=== PATIENT | male | born 1940 | race Caucasian/White ===

== ENCOUNTER → 2017-11-10 | Outpatient (CLI) | payer MEDICARE ==
[2017-11-10 15:25] LABS: ABSOLUTE EOSINOPHILS # (AUTO) 0.2 10^3/uL (0.0-0.6); ABSOLUTE LYMPHOCYTES (AUTO) 1.3 10^3/uL (0.5-4.7); ABSOLUTE MONOCYTES (AUTO) 0.6 10^3/uL (0.1-1.4); ABSOLUTE NEUT (AUTO) 5.2 10^3/uL (1.7-8.2); BASOPHILS % (AUTO) 0.3 % (0-2); EOSINOPHILS % (AUTO) 2.1 % (0-6); HEMOGLOBIN 14.1 g/dL (13.5-17.0); LYMPHOCYTES % (AUTO) 18.4 % (13-45); MEAN CORPUSCULAR HEMOGLOBIN 33.8 pg (27.0-33.4); MEAN CORPUSCULAR HGB CONC 35.2 g/dL (32.0-36.0); MEAN CORPUSCULAR VOLUME 96 fl (80-97); MONOCYTES % (AUTO) 8.6 % (3-13); PLATELET COUNT 163 10^3/uL (150-450); RED BLOOD COUNT 4.16 10^6/uL (4.35-5.55); RED CELL DISTRIBUTION WIDTH 13.3 % (11.5-14.0); SEGMENTED NEUTROPHILS % (AUTO) 70.6 % (42-78); TOTAL CELLS COUNTED % (AUTO) 100 %; WHITE BLOOD COUNT 7.3 10^3/uL (4.0-10.5)
[2017-11-10 15:49] LABS: C-REACTIVE PROTEIN < 5.0 mg/L (<10.0)
[2017-11-10 16:03] LABS: ERYTHROCYTE SEDIMENTATION RATE 10 mm/hr (0-20)
[2017-11-12 16:45] LABS: CYCLIC CITRUL PEPTIDE IGG/A AB 5 units (0-19)
== END ==
LOC: OD 14:19
PROVIDERS: ATTEND Orthopaedic Surgery
DX: M51.36 Other intervertebral disc degeneration, lumbar region (principal); M25.50 Pain in unspecified joint
CPT/HCPCS: 36415; 84550; 85025; 85652; 86038; 86140; 86200; 86430

== ENCOUNTER 2019-05-08 08:19 | Day surgery (SDC) | payer MEDICARE ==
[2019-04-18 11:42] LABS: HEMATOCRIT 44.7 % (37.9-51.0); HEMOGLOBIN 15.3 g/dL (13.5-17.0); MEAN CORPUSCULAR HEMOGLOBIN 33.1 pg (27.0-33.4); MEAN CORPUSCULAR HGB CONC 34.2 g/dL (32.0-36.0); MEAN CORPUSCULAR VOLUME 97 fl (80-97); PLATELET COUNT 152 10^3/uL (150-450); RED BLOOD COUNT 4.62 10^6/uL (4.35-5.55); RED CELL DISTRIBUTION WIDTH 12.6 % (11.5-14.0); WHITE BLOOD COUNT 5.5 10^3/uL (4.0-10.5)
[2019-04-18 12:00] LABS: INTERNATIONAL RATION (INR) 0.99; PROTHROMBIN TIME 13.1 SEC (11.4-15.4)
[2019-04-18 12:01] LABS: PARTIAL THROMBOPLASTIN TIME 28.1 SEC (23.5-35.8)
[2019-04-18 12:15] LABS: ANION GAP 9 (5-19); BLOOD UREA NITROGEN 23 mg/dL (7-20); CALCIUM 9.1 mg/dL (8.4-10.2); CARBON DIOXIDE 27 mmol/L (22-30); CHLORIDE 103 mmol/L (98-107); GLUCOSE 93 mg/dL (75-110); POTASSIUM 4.6 mmol/L (3.6-5.0)
--- NOTE | 2019-04-18 21:46 | EKG REPORT ---
SEVERITY:- NORMAL ECG - SINUS RHYTHM : Confirmed by: Diana Mendez 18-Apr-2019 21:45:43
[~2019-05-08 08:19] MED LIST: CEFAZOLIN SODIUM 1 GM in DEXTROSE 5%-WATER 50 ML IV SCH; FENTANYL CITRATE INJ/PF 100 MCG/2 ML AMPUL ONE; MIDAZOLAM 2 MG/2 ML INJ ONE; PROPOFOL INJ 200 MG/20 ML VIAL IV ONE
[2019-05-08] MEDS ORDERED: DEXAMETHASONE SOD PHOSPHATE INJ 4 MG/1 ML VIAL ONE (10:52)
[2019-05-08] MEDS ORDERED: ONDANSETRON HCL INJ/PF 4 MG/2 ML SDV ONE (10:52)
[2019-05-08] MEDS ORDERED: SODIUM BICARBONATE 8.4% INJ 50 MEQ/50 ML DISP.SYRIN ONE (10:55)
[2019-05-08] MEDS ORDERED: POVIDONE-IODINE 5% OPH PREP SOLN 30 ML ONE (10:55)
[2019-05-08] MEDS ORDERED: LIDOCAINE 1%/EPINEPHRINE INJ 20 ML VIAL ONE (10:55)
[2019-05-08] MEDS ORDERED: ONDANSETRON HCL INJ/PF 4 MG/2 ML SDV IV PRN (11:42)
[2019-05-08] MEDS ORDERED: OXYCODONE-ACETAMINOPHEN 5-325 MG TABLET PO PRN ×2 (11:42)
[2019-05-08] MEDS ORDERED: DIPHENHYDRAMINE HCL 50 MG/ML VIAL IV PRN (11:42)
[2019-05-08] MEDS ORDERED: FENTANYL CITRATE INJ/PF 100 MCG/2 ML AMPUL IV PRN ×3 (11:42)
[2019-05-08] MEDS ORDERED: MORPHINE SULFATE 10 MG/ML INJ IV PRN (11:42)
[2019-05-08] MEDS ORDERED: MEPERIDINE HCL/PF INJ 25 MG/1 ML DISP.SYRIN IV PRN (11:42)
--- NOTE | 2019-05-08 12:55 | Operative Report ---
Operative Report DATE OF SURGERY: 05/08/19 PREOPERATIVE DIAGNOSIS: Basal cell carcinoma of the right malar area with posit tsering deep margin and very close lateral margins POSTOPERATIVE DIAGNOSIS: Same in addition the specimen had extensive amount of basal cell carcinoma and extensive amount of extension to the deep area of the specimen as per Dr. Moreno OPERATION: Excision of basal cell carcinoma from the right malar area with frozen section margin control and reconstruction with a O to L plasty sliding advancement flap SURGEON: RIGOBERTO DOS SANTOS ANESTHESIA: LMAC TISSUE REMOVED OR ALTERED: Basal cell carcinoma COMPLICATIONS: None ESTIMATED BLOOD LOSS: Minimal PROCEDURE: Patient seen and was marked prior to being brought into the operating room. Patient was brought into the operating room and placed on the operating room table in a supine position. Patient was then prepped with a Betadine scrub and Betadine solution and draped in a sterile and aseptic manner. The area was then marked. 12 O'clock was marked towards the lateral canthus 3 O'clock was marked towards the nose 6:00 was marked towards the mandible margin 9:00 was marked towards the ear The area was then anesthetized with 1% lidocaine with epinephrine and bicarbonate for its anesthetic and hemostatic effects. The area was then excised and marked at 12:00. The specimen was sent for frozen section. The results came back that the deep and lateral margins were free. We had considered a primary closure but this would go against the natural relaxed skin tension lines. A primary closure would be too tight and would have increased chance of dehiscence. This will leave more of a scar so we decided to use a O to L flap reconstruction which would camouflage the scar better and take tension off of the closure so that would be less chances of complications. It was felt that this flap would allow us to direct the reconstruction along his natural relaxed skin tension lines. It will also allow us to curve the scar into the patient's natural crows foot wrinkle. The flap would allow us to use the skin to be undermined in the facelift plane to create a tension-free closure. Then we went ahead and outlined the flap and anesthetized it. We then incised the flap and developed a flap maintaining the subdermal plexus. Then we undermined 360 to allow for plate like scarring and minimize trap door deformity. Throughout the case hemostasis was achieved with the bipolar. We then sutured the flap into its new position using 4-0 Vicryl for the subcutaneous and deep dermis. Skin was closed with a running subcuticular suture stitch using 4-0 PDS with knots being tied on the outside. And 4-0 PDS suture was used for support and placed in the central area of the incision. We then applied Dermabond followed by a light pressure dressing. Patient was then reversed from anesthesia and taken to the [facility] for recovery. The patient tolerated well. There were no complications. Lesion size was approximately 2 cm please see pathology for actual size. Portions of this note may be dictated using [employer] voice recognition software. Occasional variations and spelling and vocabulary could be possible and are unintentional. Additionally, there is a chance that some errors may not be caught or corrected. Please notify the author of any discrepancies noted or if any statements are unclear. Subjective: No complaints Objective: Vital signs stable afebrile No bleeding Dressing intact Assessment and plan: Doing well. Elevate the operative site. Resume medications. Take antibiotics for 1 day Follow-up Full instructions were given to the patient and family and they understand Portions of this note may be dictated using [employer] voice recognition software. Occasional variations and spelling and vocabulary could be possible and are unintentional. Additionally, there is a chance that some errors may not be caught or corrected. Please notify the offer of any discrepancies noted or if any statements are unclear.
--- NOTE | 2019-05-08 12:57 | Discharge Summary ---
Discharge Summary (SDC) - Discharge Final Diagnosis: Basal cell carcinoma of the right malar area Date of Surgery: 05/08/19 Condition: Good Forms: ASU Anesthesia D/C Instruction, Discharge POC-Surgical Service Treatment or Instructions: Antibiotics for 1 day, then discontinue. Elevate operative area to decrease swelling. Do not strain, or lift heavy objects. Call for excessive bleeding, increased temperature of 101, uncontrolled pain, or excessive nausea or vomiting. You may reach Dr. Dos Santos through his office at [phone]. In the event of an emergency after hours, then contact Dr. Dos Santos through [facility]. Return to the office for a postop check on . The time will be scheduled by the nursing staff of [facility] prior to discharge. Please give the patient a copy of their labs and EKG so they can bring this to their PMD. Thank you Portions of this note may be dictated using [employer] voice recognition software. Occasional variations and spelling and vocabulary could be possible and are unintentional. Additionally, there is a chance that some errors may not be caught or corrected. Please notify the offer of any discrepancies noted or if any statements are unclear. Referrals: RIGOBERTO DOS SANTOS MD [ACTIVE STAFF] - 05/10/19 2:30 pm (May AT 1430) Discharge Diet: As Tolerated Discharge Activity: No Lifting/Push/Pulling Report the Following to Your Physician Immediately: Unusual Bleeding - keep head elevated. No bending or straining.
[2019-05-08 14:23] VITALS: BP 131/67
== END 2019-05-08 14:20 | disposition home or self-care (01) ==
LOC: OROUT 08:19
PROVIDERS: ATTEND Plastic Surgery
DX: C44.319 Basal cell carcinoma of skin of other parts of face (principal); L57.0 Actinic keratosis; L57.8 Other skin changes due to chronic exposure to nonionizing radiation; Z79.01 Long term (current) use of anticoagulants; Z79.899 Other long term (current) drug therapy
CPT/HCPCS: 93005; 36415; 85027; 85610; 85730; 80048; 88305 ×2; 88331 ×2; 93010; 00300; 14040; J2250; J0690; J1100; J3010; J3490 ×3; J2405; J7060; J2704; 300